=== PATIENT | female | born 1975 | race Caucasian/White ===

== ENCOUNTER 2018-02-02 13:07 | Emergency (ER) | payer OTHER ==
[~2018-02-02] VITALS: Ht 152.4 cm; Wt 102.1 kg
[~2018-02-02 13:07] MED LIST: ALEVE220 MG PO; AUGMENTIN 875875 M1 PO; LANTUS; NORCO 5-325 TA1 EAC1 PO; NORCO 5-325 TA1 EACH PO; NOVOLOG100 UNIT/1
[2018-02-02] MEDS ORDERED: HUMALOG100 UNIT/1 SUBQ (14:02)
[2018-02-02] MEDS ORDERED: KEFLEX500 M1 PO (14:27)
== END 2018-02-02 14:49 | disposition home or self-care (01) ==
LOC: M.ERS 13:07
DX: L02.11 Cutaneous abscess of neck (principal); I10 Essential (primary) hypertension; E11.9 Type 2 diabetes mellitus without complications; Z98.890 Other specified postprocedural states; Z79.4 Long term (current) use of insulin; Z88.6 Allergy status to analgesic agent